=== PATIENT | female | born 1955 | race Caucasian/White ===

== ENCOUNTER → 2017-12-06 | Outpatient (CLI) | payer OTHER ==
[~2017-12-06] MED LIST: ALLEGRA-D 12 HO1 TER PO; AMBIEN 10MG10 MG PO; AMBIEN 5MG TABLE5 MG PO; ASPIRIN 32325 MG/TAB PO; BENADRYL 50MG C50 MG PO; BENADRYL25 M1 PO; BENADRYL25 MG PO; CALCIUM WITH D1 CTB PO; CALCIUM600 MG PO; CRESTOR10 MG PO; CYTOTEC 20200 MCG/T1 PO; CYTOTEC200 MCG PO; D3; HCTZ 25MG25 MG PO; HCTZ PO; IMURAN 50MG TAB50 MG PO; LEXAPRO20 MG PO; LOPRESSOR 225 MG/TAB PO; METOPROLOL25 MG PO; MISOPROSTOL PO; MISOPROSTOL200 MCG PO; NEURONTIN600 MG/TAB PO; NORCO 325 MG-51 TAB PO; POTASSIUM99 MG PO; PRAVASTATIN20 MG PO; PREDNISONE 2.52.5 MG PO; RELPAX PO; REMICADE V100 MG/VIA IV; SUDAFED 30M30 MG/TAB PO; TRAMADOL50 MG PO; ULTRAM 50MG TAB50 MG PO; VALIUM 5MG T5 MG/TAB PO; VALIUM5 MG PO; VITAMIN D31000 IU PO; VITAMIN D32000 IU PO; ZOCOR 40MG40 MG PO; ZOLPIDEM5 MG PO
== END ==
LOC: COL.RAD 12:56
DX: J02.9 Acute pharyngitis, unspecified (principal); J32.9 Chronic sinusitis, unspecified; E04.2 Nontoxic multinodular goiter; M79.89 Other specified soft tissue disorders

== ENCOUNTER → 2017-12-24 | Outpatient (CLI) | payer OTHER ==
[2009-08-13 19:54] VITALS: BP 137/80
[~2017-12-24] VITALS: Ht 160 cm; Wt 124.6 kg
[~2017-12-24] MED LIST changes: +CYMBALTA 60MG60 MG PO; +NYSTATIN OR100 MU/ML PO
[2017-12-24 09:33] VITALS: BP 126/74; PULSE 79
[2017-12-24 10:50] VITALS: BP 131/92; PULSE 68
== END ==
LOC: COL.RAD 08:59
DX: E04.2 Nontoxic multinodular goiter (principal)

== ENCOUNTER → 2018-03-31 | Outpatient (CLI) | payer OTHER ==
[2009-08-13 19:54] VITALS: BP 137/80
[~2018-03-31] VITALS: Ht 160 cm; Wt 130.4 kg
[~2018-03-31] MED LIST changes: -BENADRYL25 M1 PO; +BENADRYL50 MG PO; +HYDRODIURIL50 MG PO; -METOPROLOL25 MG PO; -MISOPROSTOL200 MCG PO; +TOPROL XL 25MG25 MG PO; -ZOLPIDEM5 MG PO
[2018-03-31 07:48] VITALS: BP 136/85; PULSE 92
[2018-03-31 09:10] VITALS: BP 141/99; PULSE 88
== END ==
LOC: COL.RAD 07:14
DX: E04.1 Nontoxic single thyroid nodule (principal)

== ENCOUNTER → 2018-04-11 | Outpatient (CLI) | payer OTHER | LOC: MC.RAD 10:00 | DX: Z12.31 Encounter for screening mammogram for malignant neoplasm of breast (principal) ==

== ENCOUNTER 2018-07-10 09:18 | Outpatient (RCR) | payer MEDICARE | END 2018-09-05 09:32 | disposition home or self-care (01) | LOC: WSPT 09:18 | DX: M75.52 Bursitis of left shoulder (principal); M54.12 Radiculopathy, cervical region; Z85.828 Personal history of other malignant neoplasm of skin; Z79.899 Other long term (current) drug therapy | CPT/HCPCS: G8984-GP; G8985-GP ==

== ENCOUNTER 2018-11-04 11:30 | Outpatient (RCR) | payer MEDICARE | END 2018-11-07 09:04 | disposition home or self-care (01) | LOC: MKS.ESL.PT 11:30 | DX: M50.123 Cervical disc disorder at C6-C7 level with radiculopathy (principal); M75.102 Unspecified rotator cuff tear or rupture of left shoulder, not specified as traumatic | CPT/HCPCS: G0283-GP; G8984-GP; G8985-GP ==

== ENCOUNTER 2019-02-16 14:00 | Outpatient (RCR) | payer MEDICARE | END 2019-03-27 11:43 | disposition home or self-care (01) | LOC: WSPT 14:00 | DX: M75.42 Impingement syndrome of left shoulder (principal) ==

== ENCOUNTER → 2019-05-26 | Outpatient (CLI) | payer MEDICARE | LOC: COL.RAD 09:45 | DX: E04.2 Nontoxic multinodular goiter (principal) ==

== ENCOUNTER → 2019-10-13 | Outpatient (CLI) | payer MEDICARE | LOC: COL.RAD 13:15 | DX: M47.812 Spondylosis without myelopathy or radiculopathy, cervical region (principal); M48.02 Spinal stenosis, cervical region; M19.012 Primary osteoarthritis, left shoulder ==

== ENCOUNTER → 2020-07-06 | Outpatient (CLI) | payer MEDICARE | LOC: COL.RAD 13:30 | DX: E04.1 Nontoxic single thyroid nodule (principal) ==

== ENCOUNTER → 2020-08-04 | Outpatient (CLI) | payer MEDICARE ==
[2009-08-13 19:54] VITALS: BP 137/80
[~2020-08-04] VITALS: Ht 160 cm; Wt 135.5 kg
[~2020-08-04] MED LIST changes: +ATIVAN 0.50.5 MG/TAB PO; +EXCEDRIN1 TAB PO; +GRALISE600 MG PO; +INFLECTRA100 MG IV; -SUDAFED 30M30 MG/TAB PO; +SUDAFED30 MG PO
[2020-08-04 13:41] VITALS: BP 185/80; PULSE 77
[2020-08-04 14:45] VITALS: BP 168/55; PULSE 72
== END ==
LOC: COL.RAD 13:17
DX: E04.1 Nontoxic single thyroid nodule (principal)

== ENCOUNTER 2020-09-24 05:11 | Emergency (ER) | payer MEDICARE ==
[2009-08-13 19:54] VITALS: BP 137/80
[~2020-09-24] VITALS: Ht 160 cm; Wt 136.4 kg
[2020-09-24 05:20] VITALS: TEMP 98
[2020-09-24] MEDS ORDERED: CEPHALEXIN500 M1 PO (06:57)
[2020-09-24 07:37] VITALS: BP 126/68; PULSE 68
== END 2020-09-24 07:37 | disposition home or self-care (01) ==
LOC: COL.ER 05:11
DX: S51.011A Laceration without foreign body of right elbow, initial encounter (principal); S71.111A Laceration without foreign body, right thigh, initial encounter; Z88.0 Allergy status to penicillin; Z88.2 Allergy status to sulfonamides; Z88.1 Allergy status to other antibiotic agents; Z88.8 Allergy status to other drugs, medicaments and biological substances; Z88.7 Allergy status to serum and vaccine; Z79.82 Long term (current) use of aspirin; W22.03XA Walked into furniture, initial encounter; Y92.009 Unspecified place in unspecified non-institutional (private) residence as the place of occurrence of the external cause

== ENCOUNTER → 2020-10-06 | Outpatient (CLI) | payer MEDICARE ==
[~2020-10-06] MED LIST changes: +CEPHALEXIN500 M1 PO
[2020-10-06 12:36] VITALS: BP 120/79; PULSE 74; TEMP 98.3
== END ==
LOC: COL.ER 12:27
DX: Z48.02 Encounter for removal of sutures (principal)

== ENCOUNTER → 2021-03-03 | Outpatient (CLI) | payer MEDICARE | LOC: MC.RAD 11:28 | DX: Z12.31 Encounter for screening mammogram for malignant neoplasm of breast (principal); N64.89 Other specified disorders of breast ==

== ENCOUNTER → 2021-03-10 | Outpatient (CLI) | payer MEDICARE | LOC: MC.RAD 13:00 | DX: N63.10 Unspecified lump in the right breast, unspecified quadrant (principal); N64.89 Other specified disorders of breast ==

== ENCOUNTER → 2021-03-21 | Outpatient (CLI) | payer MEDICARE | LOC: MC.RAD 10:00 | DX: Z12.31 Encounter for screening mammogram for malignant neoplasm of breast (principal); N64.89 Other specified disorders of breast; N63.10 Unspecified lump in the right breast, unspecified quadrant; N62 Hypertrophy of breast ==

== ENCOUNTER 2021-06-26 14:00 | Outpatient (RCR) | payer MEDICARE | END 2021-08-02 | disposition home or self-care (01) | LOC: PT.GENESIS | DX: M25.511 Pain in right shoulder (principal) ==

== ENCOUNTER → 2022-01-04 | Outpatient (CLI) | payer MEDICARE | LOC: COL.RAD 08:07 | DX: E04.2 Nontoxic multinodular goiter (principal) ==

== ENCOUNTER → 2024-07-01 | Outpatient (CLI) | payer MEDICARE | LOC: COL.RAD 07:30 | DX: M47.26 Other spondylosis with radiculopathy, lumbar region (principal); M47.22 Other spondylosis with radiculopathy, cervical region; M48.061 Spinal stenosis, lumbar region without neurogenic claudication; M25.78 Osteophyte, vertebrae; M89.38 Hypertrophy of bone, other site; M48.02 Spinal stenosis, cervical region ==